=== PATIENT | male | born 1995 | race African-American/Black ===

== ENCOUNTER 2021-09-20 17:34 | Emergency (ER) | payer OTHER, MEDICAID, SELFPAY ==
[2021-09-20 17:35] VITALS: BP 145/96; PULSE 77; RESP 16; TEMP 36.3; O2SAT 99; BMI 27.0
[2021-09-20 17:39] VITALS: BP 145/96; PULSE 77; RESP 16; TEMP 36.3; O2SAT 99
--- NOTE | 2021-09-20 17:54 | RAD_ITS ---
STUDY: X-RAY - LEFT FOOT CLINICAL: Male, 26 years old. Laceration, pain TECHNIQUE: 3 view(s) of the foot. COMPARISON: None. FINDINGS: Normal talus, calcaneus, and tarsal bones. Normal visualized subtalar, talonavicular, calcaneocuboid, tarsal and tarsometatarsal articulations. Normal metatarsi. Normal metatarsophalangeal joint of the great toe. Normal tibial and fibular sesamoid bones. Normal interphalangeal joint of the great toe. Normal phalanges of the great toe. Normal second through fifth metatarsophalangeal joints. Normal interphalangeal joints and phalanges of the lesser toes. There is 1.0 cm increased density foreign body in the medial soft tissues of the great toe. There is no acute fracture. RAD/Foot min 3 Views IMPRESSION: Foreign body in the soft tissues. Electronically Signed: Deandre Agosto MD at 19:27 EDT ,
--- NOTE | 2021-09-20 18:05 | ED.VIS.LOWEX ---
HPI History of Present Illness Chief Complaint: Laceration Narrative Narrative: 26-year-old male presenting with left foot and left knee pain. He states he works for [employer]. He was chased by a dog and as he started running from the dog his shoe ripped off. He states his sock did the same. The left foot sustained a wound to the plantar surface of the great toe. He states he basically took the skin off here. He states that eventually he tripped and fell and hit his left knee. He reports no dog bites. Last tetanus immunization 1 year ago. He reports no medical history otherwise. PFSH PFSH Medical History no medical history Home Medications NK 09/20/21 [History Last Taken Unknown] Allergy/AdvReac Type Severity Reaction Status Date / Time No Known Allergies Allergy Verified 09/20/21 17:39 Family History no significant family his Surgical History no surgical history Social History Smoking Status: Never smoker substance use type: marijuana ROS ROS ED Constitutional Constitutional ED: Denies chills or fever(s) Eyes Eyes: Denies change in vision or diplopia ENT ENT ED: Denies rhinorrhea or sore throat Cardiovascular Cardiovascular: Denies chest pain or palpitations Respiratory/Chest Respiratory/Chest: Denies cough or dyspnea Gastrointestinal Gastrointestinal: Denies abdominal pain, constipation or diarrhea Genitourinary Genitourinary ED: Denies dysuria or hematuria Musculoskeletal Musculoskeletal: Reports other Details: Left great toe pain, left knee pain Integumentary Reports other Details: Skin avulsion left great toe. Superficial abrasion to left knee Neurologic Neurologic: Denies headache(s) or paresthesias Psychiatric Psychiatric: Denies anxiety or depression EXAM Physical Exam Const Vital Signs: 09/20/21 17:35 09/20/21 17:39 09/20/21 19:35 Temperature 97.3 F L 97.3 F L Temperature Source Temporal Temporal Pulse Rate 77 77 Respiratory Rate 16 16 18 Blood Pressure 145/96 H 145/96 H Blood Pressure Mean 112 112 Pulse Ox 99 99 Oxygen Delivery Method Room Air Room Air Positive well nourished General Appearance ED: NAD HEENT Reports moist mucous membranes normocephalic and atraumatic Eyes PERRL Resp normal respiratory effort Cardio regular rate and regular rhythm Extremity Extremity Narrative: The pad of the left great toe has been avulsed. There is no deep laceration. There is tenderness to the left great toe. No crepitance or deformity. Left foot neurovascular intact brisk cap refill all 5 toes. Left knee minimally tender to palpation with superficial abrasion overlying this area. Bleeding well controlled. Full range of motion of left knee without any deformity. No ligamentous laxity. Left knee extensor mechanism is intact. Neuro oriented x3 and CN's II-XII intact bilaterally Sensorium / Orientation: alert Motor Exam: strength 5/5 throughout Psych mental status grossly normal Skin no wounds MDM MDM MDM Narrative Medical decision making narrative: Patient presenting with skin avulsion to the left great toe. X-ray on the left great toe on my interpretation shows no acute fracture or subluxation. Radiologist read this is a foreign body in the skin however I think this is the skin tear interface with the x-ray. Patient's wound was soaked for over 20 minutes. I reevaluated the patient's wound there is no foreign bodies in the wound. I did offer to remove the avulsed skin however the patient elected to have this dressed in place. He does not need a suture. Patient's left knee abrasion was also cleaned and dressed. I do not believe he needs an x-ray of the left knee. Tetanus immunization is up-to-date. Patient given a postop shoe because he states he is going to finish his [employer]. Impression: 1. Left great toe skin avulsion 2. Left knee skin abrasion Lab Data Attestation: I reviewed the patient's lab results. Radiography Diagnostic Testing: Clinical Impression(s) from Imaging Studies Foot X-Ray 09/20/21 17:54 IMPRESSION: Foreign body in the soft tissues. Electronically Signed: Deandre Agosto MD at 19:27 EDT Reading Location ID and State: [facility] / [place] , Service support , Discharge Plan Triage Chief Complaint: Laceration ED Provider: Miguel Feliciano Dx/Rx/DC Orders Instructions: ED Laceration Small or ... Prescriptions: No Action NK Primary Care Provider: Care Physician,No Primary Referrals: Care Physician,No Primary [Primary Care Provider] - Clinic,NOW [NON-STAFF] - 3-5 Days Disposition Disposition: Home, Self Care Discharge Date/Time: 09/20/21 19:51
--- NOTE | 2021-09-20 18:21 | ED.RN ---
ATTEMPTED TO CALL PT'S [employer]IDE [employer] MANAGER ANEL AT [phone] TO SEE IF PT NEEDS DRUG SCREEN. DID NOT ANSWER
[2021-09-20 19:35] VITALS: RESP 18
== END 2021-09-20 19:51 | disposition home or self-care (01) ==
PROVIDERS: Emergency Provider Student in an Organized Health Care Education/Training Program; Visit Provider Student in an Organized Health Care Education/Training Program
DX: S91.102A Unspecified open wound of left great toe without damage to nail, initial encounter (principal); X58.XXXA Exposure to other specified factors, initial encounter; Y93.02 Activity, running; S80.212A Abrasion, left knee, initial encounter
CPT/HCPCS: 73630; 99283